=== PATIENT | male | born 1950 | race Caucasian/White ===

== ENCOUNTER 2024-02-19 12:56 | Outpatient (CLI) | payer MEDICARE, SELFPAY ==
--- NOTE | ~2024-02-19 | XR_ITS ---
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 There is prominent posterior mild plantar calc aneal enthesopathy. No fracture or dislocation of the ankle or disruption of the ankle mortise, periosteal reaction or sabiha ne destruction is detected. IMPRESSION: Moderate tibiotalar osteoarthritis Calcaneal enthesopathy Reviewed, dictated and finalized at location B.
== END 2024-02-19 12:57 | disposition home or self-care (01) ==
PROVIDERS: PCP Internal Medicine; Visit Provider Internal Medicine
DX: M77.32 Calcaneal spur, left foot (principal); M19.072 Primary osteoarthritis, left ankle and foot
CPT/HCPCS: 73610